=== PATIENT | female | born 1985 | race Caucasian/White ===

== ENCOUNTER 2020-11-04 11:12 | Emergency (ER) | payer SELFPAY ==
[2020-11-05 01:10] LABS: SARS-CoV-2 PCR by NAA DETECTED (NotDetected)
== END 2020-11-04 13:00 | disposition home or self-care (01) ==
LOC: CSHERS 11:12
DX: U07.1 COVID-19 (principal)
CPT/HCPCS: 87635; 99283; U0003; U0005

== ENCOUNTER 2021-04-19 15:19 | Emergency (ER) | payer SELFPAY | END 2021-04-19 16:58 | disposition home or self-care (01) | LOC: CSHERS 15:19 | DX: Z53.21 Procedure and treatment not carried out due to patient leaving prior to being seen by health care provider (principal) ==